=== PATIENT | male | born 1975 | race Caucasian/White ===

== ENCOUNTER 2020-01-17 15:51 | Emergency (ER) | payer OTHER, SELFPAY ==
[2020-01-17 15:55] VITALS: BP 150/104; PULSE 94; RESP 14; TEMP 36.8; O2SAT 96; BMI 25.7
--- NOTE | 2020-01-17 17:02 | ED_ITS ---
HPI - Wound/Laceration <CRISTOBAL Moya - Last Filed: 01/17/20 18:19> General Chief Complaint: Wound/Laceration Stated Complaint: rt wrist cut Time Seen by Provider: 01/17/20 16:03 Source: patient Mode of arrival: Ambulatory Limitations: no limitations History of Present Illness HPI narrative: 44-year-old male with history of ADHD, presents to the emergency department complaining of a laceration to palmar aspect of right wrist happening about an hour ago. He states he was using a vice dust collector attendant when the handle broke causing his hand to fall into the vice dust collector attendant resulting in a laceration. He applied pressure to the area which completely controlled bleeding. He denies any numbness, tingling, difficulty moving his wrist, hand, or fingers. He states his last Tdap was 7 years ago. He denies any other symptoms such as arm pain, head injury, other lacerations, chest pain, shortness of breath, fevers, or other concerns. Related Data Allergies Allergy/AdvReac Type Severity Reaction Status Date / Time acetaminophen [From Vicodin] Allergy Verified 01/17/20 16:03 hydrocodone [From Vicodin] Allergy Verified 01/17/20 16:03 lorazepam Allergy Verified 01/17/20 16:03 oxycodone Allergy Verified 01/17/20 16:03 Review of Systems <CRISTOBAL Moya - Last Filed: 01/17/20 18:19> Review of Systems Narrative: REVIEW OF SYSTEMS: GENERAL: Denies fever or chills. HENT: Denies head trauma. EYE: Denies double vision or vision loss. CARDIOVASCULAR: Denies syncope. MUSCULOSKELETAL: Denies weakness, or deformities. INTEGUMENTARY: Complains of laceration, see HPI. NEURO: Denies numbness or tingling. Patient History <CRISTOBAL Moya - Last Filed: 01/17/20 18:19> Medical History ADHD (Acute) Social History Smoking Status: Unknown if ever smoked Smoking Status: Unknown if ever smoked alcohol intake frequency: holidays/special occasions only Substance Use Type: marijuana Exam <CRISTOBAL Moya - Last Filed: 01/17/20 18:19> Initial Vital Signs Initial Vital Signs: Vital Signs Temperature 98.3 F 01/17/20 15:55 Pulse Rate 94 H 01/17/20 15:55 Respiratory Rate 14 01/17/20 15:55 Blood Pressure 150/104 H 01/17/20 15:55 Pulse Oximetry 96 01/17/20 15:55 PHYSICAL EXAMINATION: GENERAL: Well groomed, alert, and cooperative. Answers questions promptly and appropriately. Vital signs noted. HENT: Normocephalic, atraumatic. RESPIRATORY: Normal respiratory rate, trachea midline, airway patent. No stridor, nasal flaring or accessory muscle use. MUSCULOSKELETAL: Normal gait and coordination. Equal tone and mass bilaterally. EXTREMITIES: CMS intact. Patient has full range of motion of wrist, hand, and fingers against resistance. Equal dust collector attendant strength bilaterally. SKIN: Warm, dry, soft, appropriate color for ethnicity. 12cm laceration to palmar aspect of right forearm, laceration is vertical, extends into wrist. Wound bed intact, small amount of subcu tissue visualized, no foreign bodies, no tendons visualized.. Bleeding controlled. No surrounding erythema. Wound was irrigated extensively with over 300 mL of normal saline. Sutures were placed, see procedure note. NEURO: Alert and Oriented X 3. Good coordination. Light touch sensation intact to dorsal and palmar aspect of hands and forearms. PSYCH: Appropriate affect and mood. <Mary Narvaez MD - Last Filed: 01/23/20 07:04> Initial Vital Signs Initial Vital Signs: Vital Signs Temperature 98.3 F 01/17/20 15:55 Pulse Rate 94 H 01/17/20 15:55 Respiratory Rate 14 01/17/20 15:55 Blood Pressure 150/104 H 01/17/20 15:55 Pulse Oximetry 96 01/17/20 15:55 Procedures <CRISTOBAL Moya - Last Filed: 01/17/20 18:19> Laceration Repair Laceration 1: Site: upper extremity Side (If applicable): right Size (cm): 12 Description: linear Depth: simple, single layer Local Anesthetic: lidocaine 1% and with bicarb Amount of anesthesia used (mL): 8 Pre-repair: wound explored and irrigated extensively Skin layer closed with: nylon Size (cm): 5-0 Number of sutures: 12 Technique: simple, interrupted Course <CRISTOBAL Moya - Last Filed: 01/17/20 18:19> Course Course Narrative: Patient's Tdap was updated, patient tolerated procedure well. Bacitracin was applied. Wound was dressed with gauze per nursing staff. Orders Ordered: Discontinued Medications Bacitracin (Bacitracin) 1 applic TOP NOW ONE Stop: 01/17/20 16:47 Last Admin: 01/17/20 17:13 Dose: 1 applic Documented by: BTONER Diphtheria/Tetanus/Acell Pertussis (Adacel) 0.5 ml IM .ONCE ONE Stop: 01/17/20 16:11 Last Admin: 01/17/20 17:13 Dose: 0.5 ml Documented by: BTONER Lidocaine/Sodium Bicarbonate (Buffered Lidocaine 10 Ml Syr) 10 ml INJ NOW ONE Stop: 01/17/20 16:11 Last Admin: 01/17/20 17:12 Dose: 10 ml Documented by: BTONER Vital Signs Vital signs: Vital Signs - 8 hr 01/17/20 15:55 01/17/20 17:55 Temperature 98.3 F Pulse Rate 94 H 80 Respiratory Rate 14 20 Blood Pressure 150/104 H 141/88 H Pulse Oximetry 96 98 <Mary Narvaez MD - Last Filed: 01/23/20 07:04> Orders Ordered: Discontinued Medications Bacitracin (Bacitracin) 1 applic TOP NOW ONE Stop: 01/17/20 16:47 Last Admin: 01/17/20 17:13 Dose: 1 applic Documented by: BTONER Diphtheria/Tetanus/Acell Pertussis (Adacel) 0.5 ml IM .ONCE ONE Stop: 01/17/20 16:11 Last Admin: 01/17/20 17:13 Dose: 0.5 ml Documented by: BTONER Lidocaine/Sodium Bicarbonate (Buffered Lidocaine 10 Ml Syr) 10 ml INJ NOW ONE Stop: 01/17/20 16:11 Last Admin: 01/17/20 17:12 Dose: 10 ml Documented by: BTONER Vital Signs Vital signs: Vital Signs - 8 hr 01/17/20 15:55 01/17/20 17:55 Temperature 98.3 F Pulse Rate 94 H 80 Respiratory Rate 14 20 Blood Pressure 150/104 H 141/88 H Pulse Oximetry 96 98 MDM - Wound/Laceration <DESTINY MoyaP - Last Filed: 01/17/20 18:19> Medical Records Attestation: I reviewed the patient's medical records. Lab Data Attestation: I reviewed the patient's lab results. MDM Narrative Medical decision making narrative: History and examination reveal a fairly healthy 44-year-old male presenting for a laceration to right dorsal aspect of wrist, laceration extends exposes a small amount of subcu tissue, no concern for tendon involvement as patient has full range of motion of wrist against resistance, no visualized foreign bodies or tendons. Patient's sensation is intact, tolerated procedure well. Wound was closed with simple sutures after irrigation, see procedure note. Patient was counseled extensively about returning for signs of infection. He was counseled extensively about wound care and to avoid any emergent in dirty water until wound is healed. Patient agreed to plan of care verbalized understanding. Discharge Plan Departure Patient Disposition: Home Clinical Impression: Laceration Discharge Date/Time: 01/17/20 17:55 Instructions: DI for Laceration Repair Activity Restrictions/Additional Instructions: Thank you for entrusting me with your care today. As discussed, 12 sutures were placed in your laceration. Please leave the dressing in place for the next 24 hours, after that time frame you may remove the dressing, wash gently with soap and water, apply bacitracin, and cover the wound with gauze. There are Steri- Strips applied to your wound, do not pull on these, if they start to come undone, you may cut off the loose ends. Your sutures will need to be removed in 7 days, you can visit your primary care provider, the walk-in clinic, or return emergency department. Your Tdap (tetanus vaccination) was updated today. Please return immediately for any signs of infection such as increasing redness, severe pain, pus, swelling, fevers, or any other concerns.
[2020-01-17] MEDS: LIDO 1%/SOD BICARB 8.4% (10ML) 10 ML SYRINGE INJ (17:12)
[2020-01-17] MEDS: TET,DIPH,PERTUSS(ACELL),VAC/PF 0.5 ML SYRINGE IM (17:13)
[2020-01-17] MEDS: BACITRACIN OINT 0.9 GM PCKT 1 APPLIC TOP (17:13)
--- NOTE | 2020-01-17 17:53 | PC.NURSE ---
wrapped non adherent dressing with gauze. area was closed with 12 sutures. 4 steri strips were placed as well.
[2020-01-17 17:55] VITALS: BP 141/88; PULSE 80; RESP 20; O2SAT 98
== END 2020-01-17 17:55 | disposition home or self-care (01) ==
PROVIDERS: Emergency Provider Nurse Practitioner
DX: S61.511A Laceration without foreign body of right wrist, initial encounter (principal); F90.0 Attention-deficit hyperactivity disorder, predominantly inattentive type; W26.9XXA Contact with unspecified sharp object(s), initial encounter; Z23 Encounter for immunization
CPT/HCPCS: 12004; 90471; 99283; 99284; 90715

== ENCOUNTER → 2020-04-01 16:16 | Outpatient (CLI) | payer OTHER, SELFPAY ==
[2020-04-01 16:52] LABS: Add Manual Diff / Slide Review NO; Basophils Absolute Auto 100 /uL (0-100); Basophils Percent Auto 1.6 % (0-2); Eosinophils Absolute Auto 400 /uL (0-450); Eosinophils Percent Auto 6.4 % (2-4); Hematocrit 35.7 % (41-53); Hemoglobin 11.9 g/dL (13.5-17.5); Lymphocytes Absolute Auto 2100 /uL (1100-4500); Lymphocytes Percent Auto 37.4 % (25-40); Mean Corpuscular HGB Conc 33.4 % (30-36); Mean Corpuscular Hemoglobin 25.6 PG (26-34); Mean Corpuscular Volume 76.8 fL (80-100); Monocytes Absolute Auto 500 /uL (0-900); Monocytes Percent Auto 8.3 % (3-14); Neutrophils Absolute Auto 2600 /uL (1500-7000); Neutrophils Percent Auto 46.3 % (50-75); Platelet Count 299 X10^3/uL (150-400); Red Blood Cell Count 4.65 X10^6/uL (4.5-5.9); Red Cell Distribution Width 19.3 % (11.6-14.8); White Blood Cell Count 5.6 X10^3/uL (4.5-11.0)
[2020-04-01 17:17] LABS: Alanine Aminotransferase 40 IU/L (<50); Albumin 4.3 g/dL (3.5-5.0); Albumin Globulin Ratio 1.7 (1.0-2.8); Alkaline Phosphatase 85 U/L (38-126); Aspartate Aminotransferase 35 IU/L (17-59); BUN Creatinine Ratio 14.8 (6-22); Bilirubin Total 0.4 mg/dL (0.2-1.3); Blood Urea Nitrogen 18 mg/dL (9-20); Calcium 9.9 mg/dL (8.4-10.2); Carbon Dioxide 27 mmol/L (22-32); Chloride 106 mmol/L (98-107); Estimated Glomerular Filt Rate > 60.0 mL/min (>60); Globulin 2.5 g/dL (1.7-4.1); Glucose 117 mg/dL (70-100); HEMOLYSIS < 15 (0-50); Lipase 64 U/L (23-300); Sodium 138 mmol/L (137-145); Total Protein 6.8 g/dL (6.3-8.2)
== END ==
PROVIDERS: Referring Provider Student in an Organized Health Care Education/Training Program; Visit Provider Student in an Organized Health Care Education/Training Program
DX: K62.5 Hemorrhage of anus and rectum (principal); R10.9 Unspecified abdominal pain
CPT/HCPCS: 36415; 80053; 83690; 85025